=== PATIENT | female | born 1960 | race Caucasian/White ===

== ENCOUNTER 2016-08-10 08:36 | Day surgery (SDC) | payer BC, OTHER ==
[~2016-08-10 08:36] MED LIST: Lactated Ringers 1,000 ML IV SCH
[2016-08-10] MEDS ORDERED: Lidocaine 2% 5 ML SDV ONE (11:34)
[2016-08-10] MEDS ORDERED: Propofol 200 MG/20 ML SDV ONE ×3 (11:34→12:38)
[2016-08-10] MEDS ORDERED: fentaNYL 100 MCG/2 ML SDV ONE (11:34)
[2016-08-10] MEDS ORDERED: Midazolam 1 MG/ML 2 ML SDV ONE (11:34)
--- NOTE | 2016-08-10 11:49 | PCM.PREANE ---
Preanesthetic Assessment - Anesthesia/Transfusion/Family Hx Anesthesia History: Prior Anesthesia Without Reaction Family History of Anesthesia Reaction: No Transfusion History: No Prior Transfusion(s) - Review of Systems General: No Symptoms Pulmonary: No Symptoms Cardiovascular: No Symptoms Gastrointestinal: No symptoms Neurological: No Symptoms Other: Reports: None - Physical Assessment NPO Status Date: 08/09/16 Height: 1.7 m Weight: 91.172 kg ASA Class: 2 Mental Status: Alert & Oriented x3 Airway Class: Mallampati = 2 Dentition: Reports: Normal Dentition Lungs: Clear to auscultation, Normal respiratory effort - Lab Values: Laboratory Last Values Urine HCG, Qual NEGATIVE (NEGATIVE) 08/10/16 08:39 - Allergies Allergies/Adverse Reactions: Allergies Allergy/AdvReac Type Severity Reaction Status Date / Time amoxicillin [Amoxicillin] Allergy Hives Verified 04/26/15 13:31 - Anesthesia Plan Pre-Op Medication Ordered: None - Acknowledgements Anesthesia Type Planned: MAC Pt an Appropriate Candidate for the Planned Anesthesia: Yes Alternatives and Risks of Anesthesia Discussed w Pt/Guardian: Yes Pt/Guardian Understands and Agrees with Anesthesia Plan: Yes Additional Comments: Hep C positive, small mandible PreAnesthesia Questionnaire - Past Health History Medical/Surgical History: Denies Medical/Surgical History HEENT History: Reports: Other (See Below) Other HEENT History: wears glasses/contacts Cardiovascular History: Reports: None Respiratory History: Reports: None Gastrointestinal History: Reports: None Genitourinary History: Reports: None OPERATIONS LEADER History: Reports: Other (See Below) Other OB/BYN History: tubal ligation Musculoskeletal History: Psychiatric History: Reports: Anxiety, Depression Endocrine/Metabolic History: Reports: None - Infectious Disease History Infectious Disease History: Reports: Hepatitis C - Past Surgical History Head Surgeries/Procedures: Reports: None HEENT Surgical History: Reports: None Cardiovascular Surgical History: Reports: None GI Surgical History: Reports: Appendectomy Female Surgical History: Reports: Tubal Ligation Musculoskeletal Surgical History: Reports: Arthroscopic Knee - SUBSTANCE USE Smoking Status *Q: Current Every Day Smoker Tobacco Use Within Last Twelve Months: Cigarettes Second Hand Smoke Exposure: No Days Per Week of Alcohol Use: 3 Number of Drinks Per Day: 3 Total Drinks Per Week: 9 Recreational Drug Use History: No - HOME MEDS Home Medications: Home Meds . [No Known Home Meds] 08/27/14 [History] - CURRENT (IN HOUSE) MEDS Current Meds: Current Medications Lactated Ringer's (Ringers, Lactated) 1,000 mls @ 125 mls/hr IV ASDIRECTED DANIELLE Discontinued Medications Fentanyl (Sublimaze) Confirm Administered Dose 100 mcg .ROUTE .STK-MED ONE Stop: 08/10/16 11:35 Lidocaine (Xylocaine-Mpf 2%) Confirm Administered Dose 5 ml .ROUTE .STK-MED ONE Stop: 08/10/16 11:35 Midazolam HCl (Versed 1 Mg/Ml) Confirm Administered Dose 2 mg .ROUTE .STK-MED ONE Stop: 08/10/16 11:35 Propofol (Diprivan 20 Ml) Confirm Administered Dose 400 mg .ROUTE .STK-MED ONE Stop: 08/10/16 11:35
[2016-08-10] MEDS ORDERED: Benzocaine 20% Topical Spray UD MUCMEM ONE (12:21)
--- NOTE | 2016-08-10 13:03 | PCM.OPNOTE ---
- General Post-Op/Procedure Note Date of Surgery/Procedure: 08/10/16 Operative Procedure(s): egd w bx. colonoscopy w bx Findings: see dict [id number] Pre Op Diagnosis: change in bowel habit and abd pain Post-Op Diagnosis: Same Anesthesia Technique: Moderate sedation Primary Surgeon: Cortez Kern Pathology: egd bx colon polyp at 40 cm when scope went out, 2 mm sessile polyp random colon bx for pain and change in bowel habits Condition: Good
--- NOTE | 2016-08-10 13:12 | PCM48HPAN ---
Post Anesthesia Note - EVALUATION WITHIN 48HRS OF ANESTHETIC Vital Signs in Normal Range: Yes Patient Participated in Evaluation: Yes Respiratory Function Stable: Yes Airway Patent: Yes Cardiovascular Function Stable: Yes Hydration Status Stable: Yes Pain Control Satisfactory: Yes Nausea and Vomiting Control Satisfactory: Yes Mental Status Recovered: Yes
--- NOTE | 2016-08-10 13:12 | PCM.POSTAN ---
POST ANESTHESIA ASSESSMENT - MENTAL STATUS Mental Status: alert, oriented - RESPIRATORY Respiratory Status: respiratory rate WNL, airway patent, O2 saturation stable - CARDIOVASCULAR CV Status: pulse rate WNL, blood pressure stable - GASTROINTESTINAL GI Status: no symptoms - PAIN Pain Score: 0 - POST OP HYDRATION Hydration Status: adequate & stable
[2016-08-10 13:31] VITALS: BP 131/88
--- NOTE | 2016-08-11 06:19 | OR ---
SURGEON: Cortez Kern MD DATE OF PROCEDURE: 08/10/2016 PREOPERATIVE DIAGNOSES: Change in bowel habits and abdominal pain. POSTOPERATIVE DIAGNOSES: EGD diagnosis is acid reflux and colonoscopy diagnosis is diverticulum and colon polyp. PROCEDURE PERFORMED: EGD with biopsy. NARRATIVE: The patient was taken to the endoscopy room. A time out was called, patient identified, and procedure identified. Diprivan was then administrated. Patient went from awake to sleep, hearing doctor talking or door closing is normal. Perineum inspection and digital examination were then performed. A well- lubricated colonoscope was gently inserted through the rectum, advanced past the rectosigmoid junction, the descending colon, splenic flexure, transverse colon, hepatic flexure, ascending colon, arrived to the cecum. Cecum was identified as dictated in the finding. Then the scope was carefully withdrawn while attention was paid to the mucosal surface for any abnormality. Air will be sucked out during the scope withdrawal. At the rectum, retroflexed to examine any rectal diseases, fistula or hemorrhoids. During mucosal examination, abnormality or polyp was noted; picture taken and biopsy performed. Patient tolerated procedure well. There were no intraoperative complications, and Dr. Kern was present throughout the whole procedure. FINDINGS: EGD findin. The patient is easily sedated with [employer] and Diprivan. The patient is soundly snoring. 2. Proximal oropharynx and proximal esophagus is free of disease. No diverticulitis or inflammation, stricture, varicosity. Distal esophagus at GE junction at 40, shows moderate to prominent salmon color change consistent with acid reflux. Stomach rugae is normal in appearance. There is no food, bile, or blood or ulcer. Antrum is minimally inflamed and duodenum is grossly normal in appearance. The scope was then retrieved back to the stomach and then retroflexed to look at the fundus of the stomach, there is no hiatal hernia. Biopsy done at antrum, body, and GE junction at 40 and sucked out air while scope pulling out. Colonoscopy findin. The patient is easily sedated with [employer] and Diprivan. The patient is soundly snoring. 2. Bowel prep is suboptimum, large amount of opaque semi-formed liquid stool compromised the study. This is a compromised study because of the bowel prep and colon is rather straight forward. Cecum indicated by ileocecal fold, one-to-one indentation, and light emittance and appendiceal orifice. Mucosa examined upon scope pulling out. The patient has mild diverticulosis on the left colon, nothing on the right colon and no signs or symptoms of diverticulitis. There is also a small polyp, 2 mm sessile polyp at distance 40 cm when the scope pulling out. Sessile polyp, removed by cold biopsy forceps and there was no other etiology. No inflammation, stricture, AV malformation, mass, growth, ulceration, bleeding. In the rectum, the patient has a very large external hemorrhoid, we will address that in the followup visit. Random biopsy was also performed because the patient complained abdominal pain and alternating constipation and diarrhea. There are two specimens, one is the colon polyp and another one is random biopsy. The patient tolerated procedure well and there were no intraoperative complications. Dr. Kern was present throughout the whole procedure. The patient would benefit from repeat colonoscopy 3 to 5 years from now or if clinically indicated otherwise or the pathology of the polyp indicates otherwise. DESHAWN / SEBASTIAN /[id number]
--- NOTE | 2016-08-22 13:37 | OR ---
SURGEON: Cortez Kern MD DATE OF PROCEDURE: 08/10/2016 ADDENDUM: PROCEDURE PERFORMED: Esophagogastroduodenoscopy with biopsy and colonoscopy with biopsy. DESHAWN / SEBASTIAN /[id number]
== END 2016-08-10 13:28 | disposition home or self-care (01) ==
LOC: MW.SDS 08:36
PROVIDERS: ATTEND Surgery
PROC: 0DB48ZX Excision of Esophagogastric Junction, Via Natural or Artificial Opening Endoscopic, Diagnostic (ICD-10-PCS; principal; 2016-08-10)
PROC: 0DB68ZX Excision of Stomach, Via Natural or Artificial Opening Endoscopic, Diagnostic (ICD-10-PCS; 2016-08-10)
PROC: 0DBM8ZZ Excision of Descending Colon, Via Natural or Artificial Opening Endoscopic (ICD-10-PCS; 2016-08-10)
PROC: 0DBE8ZX Excision of Large Intestine, Via Natural or Artificial Opening Endoscopic, Diagnostic (ICD-10-PCS; 2016-08-10)
DX: K29.50 Unspecified chronic gastritis without bleeding (principal); D12.4 Benign neoplasm of descending colon; K57.30 Diverticulosis of large intestine without perforation or abscess without bleeding; K64.4 Residual hemorrhoidal skin tags; F17.210 Nicotine dependence, cigarettes, uncomplicated; Z88.0 Allergy status to penicillin; Z86.19 Personal history of other infectious and parasitic diseases; Z98.51 Tubal ligation status; Z90.49 Acquired absence of other specified parts of digestive tract; Z98.890 Other specified postprocedural states
CPT/HCPCS: 43239; 45380; 81025; A9270; J2250; J3010; J7120; 00740; 88305; 88312; J2704